=== PATIENT | female | born 1960 | race African-American/Black ===

== ENCOUNTER 2017-12-02 14:22 | Emergency (ER) | payer OTHER ==
[2017-12-02 14:31] VITALS: BP 118/75; PULSE 98; TEMP 98.5; BMI 32.2
--- NOTE | 2017-12-02 15:14 | PDOC ---
History of Present Illness - General Chief Complaint: Sore Throat Stated Complaint: SORE THROAT Time Seen by Provider: 12/02/17 15:05 History Source: Patient - History of Present Illness Initial Comments: 57-year-old female presents for evaluation of sore throat 3 days with no other associated symptoms. She denies fever chills or night sweats. 12/02/17 15:12 Past History - Past Medical History Allergies/Adverse Reactions: Allergies Allergy/AdvReac Type Severity Reaction Status Date / Time banana Allergy Mild Hives Verified 12/02/17 14:28 tomato Allergy Mild Itching Verified 12/02/17 14:28 Penicillins Allergy Rash Verified 12/02/17 14:28 Home Medications: Ambulatory Orders Quetiapine Fumarate [Seroquel] 600 mg PO HS 07/03/15 Ergocalciferol (Vitamin D2) [Vitamin D] 50,000 unit PO MOFR 08/08/15 Cyclobenzaprine HCl [Flexeril -] 10 mg PO BID PRN 01/06/16 Zolpidem Tartrate [Ambien] 5 mg PO HS 04/26/16 Amlodipine Besylate [Norvasc -] 10 mg PO DAILY #30 tablet 09/13/17 Hydrocodone/Acetaminophen [Radiant 10-325 Tablet] 1 each PO BID PRN #55 tablet MDD 2 11/08/17 Nicotine Polacrilex [Nicotine Gum] 4 mg BC Q2H PRN #120 gum 11/08/17 Ibuprofen 400 mg PO DAILY PRN #30 tablet 11/30/17 Anemia: No Asthma: Yes (ON MDI) Cancer: No Cardiac Disorders: No CVA: No COPD: No CHF: No Diabetes: No GI Disorders: No Disorders: No HTN: Yes Hypercholesterolemia: No Kidney Stones: No Liver Disease: No Psychiatric Problems: Yes (DEPRESSION) Seizures: No Thyroid Disease: No - Surgical History Abdominal Surgery: Yes (TUBAL LIGATION 19 YRS. AGO) Appendectomy: No Cardiac Surgery: No Cholecystectomy: No Lung Surgery: No Neurologic Surgery: No Orthopedic Surgery: No - Family Disease History Family Disease History: Heart Disease: Father - Reproductive History PID: No - Suicide/Smoking/Psychosocial Hx Smoking Status: Yes Smoking History: Never smoked Have you smoked in the past 12 months: Yes Number of Cigarettes Smoked Daily: 6 Information on smoking cessation initiated: No 'Breaking Loose' booklet given: 09/08/15 Hx Alcohol Use: No Drug/Substance Use Hx: No Substance Use Type: Alcohol, Cocaine Hx Substance Use Treatment: Yes (detox, [facility], [facility], rehab ) Review of Systems - Review of Systems Constitutional: Yes: See HPI, Malaise. No: Chills, Fever HEENTM: Yes: Throat Pain All Other Systems: Reviewed and Negative *Physical Exam - Vital Signs Last Vital Signs Temp Pulse Resp BP Pulse Ox 98.5 F 98 H 18 118/75 100 12/02/17 14:28 12/02/17 14:28 12/02/17 14:28 12/02/17 14:28 12/02/17 14:28 - Physical Exam Comments: GENERAL: The patient is awake, alert, and fully oriented, in no acute distress. HEAD: Normal with no signs of trauma. EYES: Pupils equal, round and reactive to light, extraocular movements intact, sclera anicteric, conjunctiva clear. ENT: Ears normal, nares patent, oropharynx mildly injected without exudates. Moist mucous membranes. NECK: Normal range of motion, supple without lymphadenopathy, JVD, or masses. LUNGS: Breath sounds equal, clear to auscultation bilaterally. No wheezes, and no crackles. HEART: Regular rate and rhythm, normal S1 and S2 without murmur, rub or gallop. ABDOMEN: Soft, nontender, normoactive bowel sounds. No guarding, no rebound. No masses. EXTREMITIES: Normal range of motion, no edema. No clubbing or cyanosis. No cords, erythema, or tenderness. NEUROLOGICAL: Cranial nerves II through XII grossly intact. Normal speech, normal gait. PSYCH: Normal mood, normal affect. SKIN: Warm, Dry, normal turgor, no rashes or lesions noted. 12/02/17 15:13 Medical Decision Making - Medical Decision Making Rapid strep pending 12/02/17 15:13 12/02/17 15:39 Rapid strep negative this is most likely a viral pharyngitis I'll have her follow-up with her primary care physician the remainder of her throat exam was normal. *DC/Admit/Observation/Transfer Diagnosis at time of Disposition: Viral pharyngitis - Discharge Dispostion Disposition: HOME Condition at time of disposition: Stable Decision to Admit order: No - Referrals Referrals: Justin Lema MD [Staff Physician] - - Patient Instructions Printed Discharge Instructions: Viral Pharyngitis, DI for Viral Pharyngitis Additional Instructions: Your rapid strep was negative this is most likely a viral pharyngitis. Warm salt water gargles 3-5 times a day will help your throat pain as well as Tylenol and Motrin. Return to the emergency room if your symptoms worsen or go unresolved. He should follow up with the primary care physician I recommended for you in the next day or 2. - Post Discharge Activity
== END 2017-12-02 15:43 | disposition home or self-care (01) ==
LOC: JERFT 14:22
DX: J02.9 Acute pharyngitis, unspecified (principal); B97.89 Other viral agents as the cause of diseases classified elsewhere
CPT/HCPCS: 87070; 87430; 99281-25

== ENCOUNTER 2018-05-11 11:37 | Emergency (ER) | payer OTHER ==
[2018-05-11 11:43] VITALS: BMI 32.1
--- NOTE | 2018-05-11 12:52 | PDOC ---
History of Present Illness - General Chief Complaint: Palpitations Stated Complaint: PALPITATIONS Time Seen by Provider: 05/11/18 12:29 History Source: Patient Exam Limitations: No Limitations - History of Present Illness Initial Comments: 05/11/18 12:49 The patient is a 57F with a PMH of HTN, depression, and bipolar II who presents to the ER with complaints of palpitations. The patient states that she's had 1 week of palpitations which have been occurring more frequently. Today, she felt a palpitation with sharp pain which lasted for 1 second. The pain is located in her L parasternum, nonradiating, not associated with nausea, vomiting, diaphoresis, or lightheadedness. She denies any pain at the moment. She denies SOB. She has had this 3 years ago but states that she was using drugs at the time. She denies any current drug use, any stimulant use, and any history of thyroid problems. Past History - Past Medical History Allergies/Adverse Reactions: Allergies Allergy/AdvReac Type Severity Reaction Status Date / Time banana Allergy Mild Hives Verified 05/11/18 11:42 tomato Allergy Mild Itching Verified 05/11/18 11:42 Penicillins Allergy Rash Verified 05/11/18 11:42 Home Medications: Ambulatory Orders Quetiapine Fumarate [Seroquel] 600 mg PO HS 07/03/15 Cyclobenzaprine HCl [Flexeril -] 10 mg PO BID PRN 01/06/16 Zolpidem Tartrate [Ambien] 5 mg PO HS 04/26/16 Amlodipine Besylate [Norvasc -] 10 mg PO DAILY #30 tablet 09/13/17 Nicotine Polacrilex [Nicotine Gum] 4 mg BC Q2H PRN #120 gum 11/08/17 Acetaminophen 325 mg PO BID PRN #60 tablet 02/03/18 Acyclovir [Zovirax -] 800 mg PO BID #20 tablet 02/03/18 Ergocalciferol [Vitamin D2] 50,000 unit PO Q7D@1000 #4 capsule 04/03/18 Multivitamin [Multiple Vitamins] 1 each PO DAILY #30 tablet 04/03/18 Ibuprofen 400 mg PO DAILY PRN #30 tablet 05/01/18 Hydrocodone/Acetaminophen [Weldon 10-325 Tablet] 10 each PO BID PRN MDD 2 Anemia: No Asthma: Yes (ON MDI) Cancer: No Cardiac Disorders: No CVA: No COPD: No CHF: No Diabetes: No GI Disorders: No Disorders: No HTN: Yes Hypercholesterolemia: No Kidney Stones: No Liver Disease: No Psychiatric Problems: Yes (depression) Seizures: No Thyroid Disease: No - Surgical History Abdominal Surgery: Yes (TUBAL LIGATION 19 YRS. AGO) Appendectomy: No Cardiac Surgery: No Cholecystectomy: No Lung Surgery: No Neurologic Surgery: No Orthopedic Surgery: No - Family Disease History Family Disease History: Heart Disease: Father - Reproductive History PID: No - Suicide/Smoking/Psychosocial Hx Smoking Status: Yes Smoking History: Current every day smoker Have you smoked in the past 12 months: Yes Number of Cigarettes Smoked Daily: 5 Information on smoking cessation initiated: Yes 'Breaking Loose' booklet given: 05/11/18 Hx Alcohol Use: No Drug/Substance Use Hx: No Substance Use Type: Alcohol, Cocaine Hx Substance Use Treatment: Yes (detox, [facility], [facility], rehab ) Review of Systems - Review of Systems Able to Perform ROS?: Yes Comments:: 05/11/18 12:52 GENERAL/CONSTITUTIONAL: No fever or chills. No weakness. HEAD, EYES, EARS, NOSE AND THROAT: No change in vision. No ear pain or discharge. No sore throat. CARDIOVASCULAR: Positive for palpitations and resolved chest pain. RESPIRATORY: No cough, wheezing, shortness of breath, or hemoptysis. GASTROINTESTINAL: No nausea, vomiting, diarrhea, constipation, or abdominal pain. GENITOURINARY: No dysuria, frequency, hematuria, or change in urination. MUSCULOSKELETAL: No joint or muscle swelling or pain. No neck or back pain. SKIN: No rash or lesions. NEUROLOGIC: No headache, numbness, tingling, focal weakness, loss of consciousness, or change in strength/sensation. Is the patient limited Telugu proficient: No *Physical Exam - Vital Signs Last Vital Signs Temp Pulse Resp BP Pulse Ox 98.9 F 92 H 19 115/72 98 05/11/18 11:39 05/11/18 12:37 05/11/18 11:39 05/11/18 11:39 05/11/18 12:37 - Physical Exam Comments: 05/11/18 12:52 GENERAL: Well developed, well nourished. Awake and alert. No acute distress. HEENT: Normocephalic, atraumatic. Hearing grossly normal. Moist mucous membranes. PERRLA, EOMI. No conjunctival pallor. Sclera are non-icteric. NECK: Supple. Full ROM. CARDIOVASCULAR: Regular rate and rhythm. No murmurs, rubs, or gallops. PULMONARY: No evidence of respiratory distress. Lungs clear to auscultation bilaterally. No wheezing, rales or rhonchi. ABDOMINAL: Soft. Non-tender. Non-distended. No rebound or guarding. GENITOURINARY: No CVA tenderness bilaterally. MUSCULOSKELETAL: Normal range of motion at all joints. No bony deformities or tenderness. EXTREMITIES: No cyanosis. No clubbing. No edema. No calf tenderness or swelling. SKIN: Warm and dry. Normal capillary refill. No rashes. No jaundice. NEUROLOGICAL: Alert, awake, appropriate. Cranial nerves 2-12 grossly intact. Normal speech. Gait is normal without ataxia. PSYCHIATRIC: Cooperative. Good eye contact. Appropriate mood and affect. ED Treatment Course - LABORATORY CBC & Chemistry Diagram: 05/11/18 12:50 05/11/18 12:50 - RADIOLOGY Radiology Studies Ordered: Category Date Time Status CHEST PA & LAT [RAD] Stat Radiology 05/11/18 12:38 Ordered Medical Decision Making - Medical Decision Making 05/11/18 12:53 The patient is a 57F with a PMH of HTN who presents to the ER with complaints of palpitations. On the Ddx is electrolyte abnormality, ACS, PE, and thyroid disorder. PE is much less likely as the patient has no risk factors including no immobilization, no hempotysis, no hx of cancer, and no hx of DVT's. Pending labs, EKG, CXR, and trop. 05/11/18 14:25 CBC, CMP, troponin, TSH, CXR negative for acute pathology. Will give holter monitor and d/w cards. Cards paged pending call back. 05/11/18 14:36 Case d/w Dr. Wheeler who agrees to see the patient next week with holter monitor. Will d/c with PCP and cards f/u. *DC/Admit/Observation/Transfer Diagnosis at time of Disposition: Palpitations - Discharge Dispostion Disposition: HOME Condition at time of disposition: Stable Decision to Admit order: No - Referrals Referrals: Chris Goodwin MD [Primary Care Provider] - Kristi Wheeler MD [Staff Physician] - - Patient Instructions Printed Discharge Instructions: DI for Palpitations Additional Instructions: Please follow up with your primary care physician and in 2-3 days. Please follow up with Dr. Wheeler, cardiology, next week. Please return to the ER if you have any signs or symptoms of chest pain, shortness of breath, uncontrollable fever, chills, nausea, vomiting, numbness, tingling, or weakness in any part of your body, changes in vision, or slurred speech. Please take your medications as prescribed. Please return to the ER if symptoms persist, worsen, or new symptoms arise. - Post Discharge Activity
[2018-05-11 13:02] LABS: BASO % 2.3 % (0-2.0); EOS % 1.4 % (0-4.5); HEMATOCRIT 37.1 % (32.4-45.2); HEMOGLOBIN 12.6 GM/dL (10.7-15.3); LYMPH % 48.5 % (8-40); MCH 29.3 pg (25.7-33.7); MEAN CELL VOLUME 86.2 fl (80-96); MEAN PLT VOLUME 7.9 fl (7.5-11.1); MONO % 5.8 % (3.8-10.2); PLATELET COUNT 321 K/MM3 (134-434); RDW 14.1 % (11.6-15.6); WHITE BLOOD COUNT 6.6 K/mm3 (4.0-10.0)
[2018-05-11] MEDS ORDERED: SODIUM CHLORIDE 1,000 ML IV STA (13:15)
--- NOTE | 2018-05-11 13:20 | PDOC ---
Attending Attestation - Resident Resident Name: Luis AlfredotrentMelo - ED Attending Attestation I have performed the following: I have examined & evaluated the patient, The case was reviewed & discussed with the resident, I agree w/resident's findings & plan, Exceptions are as noted - HPI HPI: 05/11/18 13:19 57 year old female with past medical history of asthma and depression presents with intermittent several seconds of palpitations last week. The patient reports that occur several times a day she felt like jumping sensation in her heart. Denies chest pain or shortness of breath. Patient reported that the symptoms were occurring nearly a daily basis came to the ER. Patient does have a strong family history of myocardial infarctions with her brother dying from heart attack at age of 48. Patient reports that she smokes a few cigarettes per day. The patient has been endorsing no symptoms currently. Patient has never had a prior cardiac workup before. Came to the ER for evaluation. - Physicial Exam PE: 05/11/18 14:25 GENERAL: Awake, alert, and fully oriented, in no acute distress HEAD: No signs of trauma EYES: EOMI, sclera anicteric, conjunctiva clear ENT: Auricles normal inspection, hearing grossly normal, nares patent,Moist mucosa NECK: Normal ROM, supple, LUNGS: Breath sounds equal, clear to auscultation bilaterally. No wheezes, and no crackles HEART: Regular rate and rhythm, normal S1 and S2, no murmurs, rubs or gallops ABDOMEN: Soft, nontender, No guarding, no rebound. No masses EXTREMITIES: Normal range of motion, no edema. No clubbing or cyanosis. No cords, erythema, or tenderness NEUROLOGICAL: Cranial nerves II through XII grossly intact. Normal speech, normal gait SKIN: Warm, Dry, normal turgor, no rashes or lesions noted. - Medical Decision Making 05/11/18 14:28 Vital Signs Temp Pulse Resp BP Pulse Ox 98.9 F 92 H 19 115/72 98 05/11/18 11:39 05/11/18 12:37 05/11/18 11:39 05/11/18 11:39 05/11/18 12:37 The patient has intermittent few seconds of palpitations sensation in her chest. Patient does have cardiac history of smoking history. EKG demonstrates Q wave in V2 but no other acute findings. Laboratory demonstrates no other acute findings. At this time, I do not suspect this is an ND. However, patient would benefit from a Holter monitor. We'll order a Holter monitor and have the patient follow cartilage. We'll consult blending tank helper for outpatient arrangement in consultation. If the blending tank helper is agreeable, will discharge patient. Heart Score/ECG Review #1 ECG reviewed & interpreted by me at: 13:40 05/11/18 14:29 NSR 88 MS intervals 200 msec, QTC 425 msec,no std/patricio., Q wave V1-V2, no brugada , no HOCM, no WPW
[2018-05-11 13:36] LABS: ALBUMIN 3.8 g/dl (3.4-5.0); ALK PHOS 101 U/L (45-117); ANION GAP 6 MMOL/L (8-16); BILIRUBIN,TOTAL 0.2 mg/dL (0.2-1); BLOOD UREA NITROGEN 13 mg/dL (7-18); CALCIUM 9.1 mg/dL (8.5-10.1); CHLORIDE 105 mmol/L (98-107); CO2 29 mmol/L (21-32); CREATININE 0.7 mg/dL (0.55-1.3); GLUCOSE,RANDOM 78 mg/dL (74-106); MAGNESIUM 2.3 mg/dL (1.8-2.4); POTASSIUM 3.6 mmol/L (3.5-5.1); SGOT/AST 13 U/L (15-37); SGPT/ALT 21 U/L (13-61); SODIUM 140 mmol/L (136-145); TOT PROT 7.7 g/dl (6.4-8.2)
[2018-05-11 15:20] VITALS: BP 124/81; PULSE 82; TEMP 98.2
--- NOTE | 2018-05-12 07:44 | EKG ---
Test Reason : Blood Pressure : / mmHG Vent. Rate : 088 BPM Atrial Rate : 088 BPM P-R Int : 200 ms QRS Dur : 066 ms QT Int : 352 ms P-R-T Axes : 052 -13 032 degrees QTc Int : 425 ms NORMAL SINUS RHYTHM POSSIBLE LEFT ATRIAL ENLARGEMENT SEPTAL INFARCT (CITED ON OR BEFORE 03-JUL-2015) ABNORMAL ECG WHEN COMPARED WITH ECG OF 03-JUL-2015 13:19, NO SIGNIFICANT CHANGE WAS FOUND Confirmed by JAIME MORILLO MD ([id number]) on 05/12/2018 7:44:16 AM Referred By: Confirmed By:JAIME MORILLO MD
--- NOTE | 2018-05-12 15:45 | HOL ---
Hook-up date: 2018-05-11 15:25:00 Duration: 23:17:00 Test Indications: PALPITATIONS Medications: [id number] QRS complexes 108 Ventricular ectopics which represent <1 % of total QRS comp. 18 Supraventricular ectopics which represent <1 % of total QRS comp. * Paced QRS complexs which represent % of total QRS comp. 2 % of Time Classified as Noise VENTRICULAR ECTOPY 108 Isolated 0 Bigeminal Cycles 0 Couplets 0 Runs 0 Beats in Runs * Beats LONGEST at * BPM at :: -- * Beats FASTEST at * BPM at :: -- SUPRAVENTRICULAR ECTOPY 15 Isolated 0 Couplets 0 Runs 0 Beats in Runs * Beats LONGEST at * BPM at :: -- * Beats FASTEST at * BPM at :: -- HEART RATES 68 MIN at 21:58:27 2018-05-11 92 AVG 133 MAX at 14:01:16 2018-05-12 LONGEST RR 1.296 secs at 07:07:05 2018-05-12 The baseline rhythm is normal sinus. The minimum rate is 68bpm and the maximum is 133bpm, sinus tachycardia. Rare, single ventricular premature contractions. Rare, single atrial premature contractions. No sustained ventricular ectopy. No significant pauses. No diary entries. Confirmed by JAIME MORILLO MD ([id number]) on 05/12/2018 3:45:30 PM Referred By: ARTEM BLAND DR Overread By: JAIME MORILLO MD
--- NOTE | 2018-05-15 10:50 | EKG ---
Test Reason : Blood Pressure : / mmHG Vent. Rate : 092 BPM Atrial Rate : 092 BPM P-R Int : 186 ms QRS Dur : 072 ms QT Int : 346 ms P-R-T Axes : 045 -06 048 degrees QTc Int : 427 ms NORMAL SINUS RHYTHM POSSIBLE LEFT ATRIAL ENLARGEMENT LOW VOLTAGE QRS SEPTAL INFARCT (CITED ON OR BEFORE 03-JUL-2015) ABNORMAL ECG WHEN COMPARED WITH ECG OF 03-JUL-2015 13:19, NO SIGNIFICANT CHANGE WAS FOUND Confirmed by PENNY BETANCOURT MD ([id number]) on 05/15/2018 10:49:59 AM Referred By: Confirmed By:PENNY BETANCOURT MD
== END 2018-05-11 15:20 | disposition home or self-care (01) ==
LOC: JER 11:37
PROC: 3E0337Z Introduction of Electrolytic and Water Balance Substance into Peripheral Vein, Percutaneous Approach (ICD-10-PCS; principal; 2018-05-11)
DX: R00.2 Palpitations (principal); R07.9 Chest pain, unspecified; I10 Essential (primary) hypertension; F31.81 Bipolar II disorder; F32.9 Major depressive disorder, single episode, unspecified; F17.210 Nicotine dependence, cigarettes, uncomplicated; Z88.1 Allergy status to other antibiotic agents
CPT/HCPCS: 36415; 71046-TC-FY; 80053; 82550; 82553; 83735; 84443; 84484; 85025; 93005; 93010; 93225; 93226; 99285-25; J7030

== ENCOUNTER 2018-06-08 11:42 | Emergency (ER) | payer OTHER ==
[2018-06-08 11:58] VITALS: TEMP 98.1; BMI 32.1
--- NOTE | 2018-06-08 12:46 | PDOC ---
History of Present Illness - General Chief Complaint: Palpitations Stated Complaint: PALPITATIONS Time Seen by Provider: 06/08/18 12:27 - History of Present Illness Initial Comments: 06/08/18 12:39 57 yo with h/o HTN,. anxiety and asthma, bi[polar disorder, who p/w palpitations. Patient reports 1 month of intermittent, stable, palpitations, with no identifiable alleviators. States that heart speeds up and slows down. aggravated with social stressors. No other complaints. Patient recently started on Metoprolol 25 mg x 2 weeks. Non adherent to medication ( Metoprolol) d/t worsening palpations with Metoprolol. Patient on Seroquel, but currently not taking. Patient follows with psych. Patient denies N/V, F,C, Cough m wheezing, hemoptysis, CP, SOB, urinary complaints, abdominal pain, diarrhea, constipation,hematuria, BPR, lightheadedness, weakness, sensory changes. PMHx: as noted above. Denies h/o ACS/IL, stent placement, CABG. Reports recent stress test, and Holter monitor with tachycardia. Denies h/o PE/DVT. ROS: as noted SHx: Tobacco use 1/2 ppd 20+ years. alcohol and cocaine cessation x 3 years ago. Allergies: PCN Cardiology: Dr. Mcnulty Past History - Past Medical History Allergies/Adverse Reactions: Allergies Allergy/AdvReac Type Severity Reaction Status Date / Time banana Allergy Mild Hives Verified 06/08/18 11:55 tomato Allergy Mild Itching Verified 06/08/18 11:55 Penicillins Allergy Rash Verified 06/08/18 11:55 Home Medications: Ambulatory Orders Quetiapine Fumarate [Seroquel] 600 mg PO HS 07/03/15 Zolpidem Tartrate [Ambien] 5 mg PO HS 04/26/16 Amlodipine Besylate [Norvasc -] 10 mg PO DAILY #30 tablet 09/13/17 Acetaminophen 325 mg PO BID PRN #60 tablet 02/03/18 Ergocalciferol [Vitamin D2] 50,000 unit PO Q7D@1000 #4 capsule 04/03/18 Multivitamin [Multiple Vitamins] 1 each PO DAILY #30 tablet 04/03/18 Ibuprofen 400 mg PO DAILY PRN #30 tablet 05/01/18 Carvedilol 3.125 mg PO BID #28 tablet MDD 2 tab 06/08/18 Metoprolol Succinate [Toprol Xl] 25 mg PO DAILY 06/08/18 Anemia: No Asthma: Yes (ON MDI) Cancer: No Cardiac Disorders: No CVA: No COPD: No CHF: No Diabetes: No GI Disorders: No Disorders: No HTN: Yes Hypercholesterolemia: No Kidney Stones: No Liver Disease: No Psychiatric Problems: Yes (depression) Seizures: No Thyroid Disease: No - Surgical History Abdominal Surgery: Yes (TUBAL LIGATION 19 YRS. AGO) Appendectomy: No Cardiac Surgery: No Cholecystectomy: No Lung Surgery: No Neurologic Surgery: No Orthopedic Surgery: No - Family Disease History Family Disease History: Heart Disease: Father - Reproductive History PID: No - Suicide/Smoking/Psychosocial Hx Smoking Status: Yes Smoking History: Current every day smoker Have you smoked in the past 12 months: Yes Number of Cigarettes Smoked Daily: 5 Information on smoking cessation initiated: No 'Breaking Loose' booklet given: 05/11/18 Hx Alcohol Use: Yes (none x 3 years) Drug/Substance Use Hx: Yes (none x 3 years) Substance Use Type: Alcohol, Cocaine Hx Substance Use Treatment: Yes (detox, [facility], [facility], rehab ) Cardiac Specific PMH - Complaint Specific PMHX Pacemaker: No Review of Systems - Review of Systems Comments:: 06/08/18 12:49 GENERAL/CONSTITUTIONAL: No fever or chills. No weakness. HEAD, EYES, EARS, NOSE AND THROAT: No change in vision. No ear pain or discharge. No sore throat. CARDIOVASCULAR: No chest pain or shortness of breath RESPIRATORY: + palpitations. No cough, wheezing, or hemoptysis. GASTROINTESTINAL: No nausea, vomiting, diarrhea or constipation. GENITOURINARY: No dysuria, frequency, or change in urination. MUSCULOSKELETAL: No joint or muscle swelling or pain. No neck or back pain. SKIN: No rash NEUROLOGIC: No headache, vertigo, loss of consciousness, or change in strength/ sensation. ENDOCRINE: No increased thirst. No abnormal weight change HEMATOLOGIC/LYMPHATIC: No anemia, easy bleeding, or history of blood clots. ALLERGIC/IMMUNOLOGIC: No hives or skin allergy. *Physical Exam - Vital Signs Last Vital Signs Temp Pulse Resp BP Pulse Ox 98.1 F 95 H 18 135/77 99 06/08/18 11:48 06/08/18 11:48 12/06/18 11:48 06/08/18 11:48 06/08/18 11:48 - Physical Exam Comments: 06/08/18 12:54 GENERAL: Awake, alert, and fully oriented, in no acute distress HEAD: No signs of trauma, normocephalic, atraumatic EYES: PERRLA, EOMI, sclera anicteric, conjunctiva clear ENT: Auricles normal inspection, hearing grossly normal, nares patent, oropharynx clear without exudates. Moist mucosa NECK: Normal ROM, supple, no lymphadenopathy, JVD, or masses LUNGS: No distress, speaks full sentences, clear to auscultation bilaterally HEART: Regular rate and rhythm, normal S1 and S2, no murmurs, rubs or gallops, peripheral pulses normal and equal bilaterally. ABDOMEN: Soft, nontender, normoactive bowel sounds. No guarding, no rebound. No masses EXTREMITIES : Normal inspection, Normal range of motion, no edema. No clubbing or cyanosis. NEUROLOGICAL: Cranial nerves II through XII grossly intact. Normal speech, normal gait, no focal sensorimotor deficits SKIN: Warm, Dry, normal turgor, no rashes or lesions noted Moderate Sedation - Procedure Monitoring Vital Signs: Procedure Monitoring Vital Signs Temperature 98.1 F 06/08/18 11:48 Pulse Rate 95 H 06/08/18 11:48 Respiratory Rate 18 06/08/18 11:48 Blood Pressure 135/77 06/08/18 11:48 O2 Sat by Pulse Oximetry (%) 99 06/08/18 11:48 ED Treatment Course - LABORATORY CBC & Chemistry Diagram: 06/08/18 12:45 06/08/18 12:45 - ADDITIONAL ORDERS Additional order review: Laboratory Results 06/08/18 06/08/18 12:45 12:45 Sodium 144 Potassium 3.7 Chloride 108 H Carbon Dioxide 28 Anion Gap 7 L BUN 12 Creatinine 0.8 Creat Clearance w eGFR > 60 Random Glucose 99 Calcium 8.9 Total Bilirubin 0.2 AST 13 L ALT 21 Alkaline Phosphatase 107 Creatine Kinase 140 Troponin I < 0.02 Total Protein 7.8 Albumin 4.0 TSH 0.79 06/08/18 12:45 RBC 4.43 MCV 87.2 MCHC 32.4 RDW 14.3 MPV 7.6 Neutrophils % 43.9 Lymphocytes % 47.8 H Monocytes % 4.7 Eosinophils % 1.9 Basophils % 1.7 - RADIOLOGY Radiology Studies Ordered: Category Date Time Status CXRPORT [CHEST X-RAY PORTABLE*] [RAD] Stat Radiology 06/08/18 12:30 Completed Medical Decision Making - Medical Decision Making 06/08/18 12:46 57 yo with h/o HTN, anxiety and asthma who p/w palpitations. ACS/IL r/o. HR~95, vitals otherwise wnl. R/o PNA. Low suspicion PE, low risk Weils criteria. Will assess for cardiac dysarrythmias, thyroid dysfunction, electrolyte abnml, acid- base disturbances, metabolic and toxic derangements. 06/08/18 12:48 Ed Course: CBC, CMP, Cardiac Pr. TSH EKG, CXR 06/08/18 14:[address] Mcnulty answering service. Awaiting call back 06/08/18 14:12 CBC,CMP: Unremarkable TSH: Neg Trop: Neg 06/08/18 14:[address] Mcnulty. Patient can follow up with her in clinic for possible medication change carvedilol 31.25 BID Carvedilol sent to pharmacy Patient stable for d/c with return precautions. *DC/Admit/Observation/Transfer Diagnosis at time of Disposition: Palpitations - Discharge Dispostion Disposition: HOME Condition at time of disposition: Stable Decision to Admit order: No - Referrals - Patient Instructions Printed Discharge Instructions: DI for Palpitations Additional Instructions: Please return to the emergency department with any new or worsening symptoms or concerns. Please follow up with your primary care physician within 72 hours. Please follow up with Dr. Wheeler within 24 hours. - Post Discharge Activity - Attestations Physician Attestion: 06/08/18 14:46 I attest to the information provided in this note.
--- NOTE | 2018-06-08 12:54 | PDOC ---
Attending Attestation - HPI HPI: 06/08/18 15:10 The patient is a 57 year old female with a significant PMHx of hypertension, anxiety, asthma, bipolar disorder, who presents to the emergency department with complaints of intermittent palpitations for about one month. She reports her hearts races for a moment and resolves on its own. She deneis any alleviating or exacerbating factors of symptoms. He states he recently started Metoprolol 25 mg x 2 weeks ago, however, has not been taking the medication as directed. Patient denies N/V, F,C, Cough m wheezing, hemoptysis, CP, SOB, urinary complaints, abdominal pain, diarrhea, constipation,hematuria, BPR, lightheadedness, weakness, sensory changes. Allergies: penicillins Cardiology: Dr. Mcnulty - Medical Decision Making 06/08/18 15:12 Documentation prepared by Linda Nunez, acting as medical pathologist for Rhoda Garcia MD <Linda Nunez - Last Filed: 06/08/18 15:10> - Resident Resident Name: Lukasz Woodward - ED Attending Attestation I have performed the following: I have examined & evaluated the patient, The case was reviewed & discussed with the resident, I agree w/resident's findings & plan, Exceptions are as noted - Physicial Exam PE: GENERAL: Awake, alert, and fully oriented, in no acute distress HEAD: No signs of trauma EYES: PERRLA, EOMI, sclera anicteric, conjunctiva clear ENT: Auricles normal inspection, hearing grossly normal, nares patent, oropharynx clear without exudates. Moist mucosa NECK: Normal ROM, supple, no lymphadenopathy, JVD, or masses LUNGS: Breath sounds equal, clear to auscultation bilaterally. No wheezes, and no crackles HEART: Regular rate and rhythm, normal S1 and S2, no murmurs, rubs or gallops ABDOMEN: Soft, nontender, normoactive bowel sounds. No guarding, no rebound. No masses EXTREMITIES: Normal range of motion, no edema. No clubbing or cyanosis. No cords, erythema, or tenderness NEUROLOGICAL: Cranial nerves II through XII grossly intact. Normal speech, normal gait SKIN: Warm, Dry, normal turgor, no rashes or lesions noted. - Medical Decision Making Multiple attempts to reach patient's psychiatrist through the office, however, unsuccessful. Also contacted Dr. Wheeler to discuss. Patient's symptoms are long- term, not acute. She has had an extensive cardiac workup as an outpatient, disliked the metoprolol. Will change to carvedilol and education counselor her to f/u with Dr. Wheeler. Patient requesting medication for anxiety, however, as these medications can have significant side effects or addictive potential, will not do that without consulting with her psychiatrist. She has an appt next week. <Rhoda Garcia - Last Filed: 06/08/18 15:42>
[2018-06-08 13:01] LABS: BASO % 1.7 % (0-2.0); EOS % 1.9 % (0-4.5); HEMATOCRIT 38.6 % (32.4-45.2); HEMOGLOBIN 12.5 GM/dL (10.7-15.3); LYMPH % 47.8 % (8-40); MCH 28.2 pg (25.7-33.7); MCHC 32.4 g/dl (32.0-36.0); MEAN CELL VOLUME 87.2 fl (80-96); MEAN PLT VOLUME 7.6 fl (7.5-11.1); MONO % 4.7 % (3.8-10.2); NEUT % 43.9 % (42.8-82.8); PLATELET COUNT 327 K/MM3 (134-434); RBC 4.43 M/mm3 (3.60-5.2); RDW 14.3 % (11.6-15.6); WHITE BLOOD COUNT 6.2 K/mm3 (4.0-10.0)
[2018-06-08 13:32] LABS: ALK PHOS 107 U/L (45-117); ANION GAP 7 MMOL/L (8-16); BILIRUBIN,TOTAL 0.2 mg/dL (0.2-1); BLOOD UREA NITROGEN 12 mg/dL (7-18); CALCIUM 8.9 mg/dL (8.5-10.1); CHLORIDE 108 mmol/L (98-107); CO2 28 mmol/L (21-32); CREATININE 0.8 mg/dL (0.55-1.3); GLUCOSE,RANDOM 99 mg/dL (74-106); POTASSIUM 3.7 mmol/L (3.5-5.1); SGOT/AST 13 U/L (15-37); SGPT/ALT 21 U/L (13-61); SODIUM 144 mmol/L (136-145); TOT PROT 7.8 g/dl (6.4-8.2)
[2018-06-08] MEDS ORDERED: CARVEDILOL 3.125 MG TABLET (FP) PO ONE (14:44)
[2018-06-08] MEDS ORDERED: CARVEDILOL 3.125 MG TABLET (FP) ONE (15:07)
[2018-06-08 15:24] VITALS: BP 121/92; PULSE 86
--- NOTE | 2018-06-09 19:05 | EKG ---
Test Reason : Blood Pressure : / mmHG Vent. Rate : 084 BPM Atrial Rate : 084 BPM P-R Int : 188 ms QRS Dur : 074 ms QT Int : 348 ms P-R-T Axes : 055 000 059 degrees QTc Int : 411 ms NORMAL SINUS RHYTHM POSSIBLE LEFT ATRIAL ENLARGEMENT SEPTAL INFARCT (CITED ON OR BEFORE 03-JUL-2015) ABNORMAL ECG WHEN COMPARED WITH ECG OF 11-MAY-2018 13:40, NO SIGNIFICANT CHANGE WAS FOUND Confirmed by AVE WALLACE MD ([id number]) on 06/09/2018 7:04:53 PM Referred By: Confirmed By:AVE WALLACE MD
== END 2018-06-08 15:15 | disposition home or self-care (01) ==
LOC: JER 11:42
DX: R00.2 Palpitations (principal); I10 Essential (primary) hypertension; F41.9 Anxiety disorder, unspecified; J45.909 Unspecified asthma, uncomplicated
CPT/HCPCS: 36415; 71045-TC-FY; 80053; 82550; 84443; 84484; 85025; 93005; 93010; 99281-25

== ENCOUNTER 2019-07-11 09:49 | Emergency (ER) | payer OTHER ==
[2019-07-11 10:10] VITALS: BP 131/80; PULSE 91; TEMP 97.5; BMI 32.7
--- NOTE | 2019-07-11 10:40 | PDOC ---
History of Present Illness - General Chief Complaint: Pain, Acute Stated Complaint: HURT RT ARM Time Seen by Provider: 07/11/19 10:13 - History of Present Illness Initial Comments: 07/11/19 10:35 Patient is a 59-year-old female with a history of hypertension, asthma and depression who presents to the ED with complaint of right upper extremity pain that she has had since the end of May. She states it started after cutting 10 bunches of juan [place]ablo greens. She states she is having pain in her elbow that radiates up and down her arm. She denies any numbness or tingling. She is right-hand dominant. Past History - Past Medical History Allergies/Adverse Reactions: Allergies Allergy/AdvReac Type Severity Reaction Status Date / Time banana Allergy Mild Hives Verified 06/08/18 11:55 tomato Allergy Mild Itching Verified 06/08/18 11:55 Penicillins Allergy Rash Verified 06/08/18 11:55 Home Medications: Ambulatory Orders Quetiapine Fumarate [Seroquel] 600 mg PO HS 07/03/15 Zolpidem Tartrate [Ambien] 5 mg PO HS 04/26/16 Carvedilol 3.125 mg PO BID #28 tablet MDD 2 tab 06/08/18 Acetaminophen 325 mg PO BID PRN #60 tablet 12/26/18 Docusate Sodium [Colace -] 100 mg PO TID #90 capsule 01/25/19 Ergocalciferol [Vitamin D2] 50,000 unit PO Q7D@1000 #4 capsule 03/30/19 Multivitamin [Multiple Vitamins] 1 each PO DAILY #30 tablet 03/30/19 Polyethylene Glycol 3350 [Miralax (For Bowel Prep) -] 17 gm PO DAILY #1 btl Nicotine [Nicotine Patch 21 mg/24 hr] 1 each TD DAILY #30 patch.[id number] 05/25/19 Amlodipine Besylate [Norvasc -] 10 mg PO DAILY #21 tablet 06/26/19 Hydrocodone/Acetaminophen [[place] 10-325 Tablet] 1 each PO BID PRN #60 tablet MDD 2 06/26/19 Ibuprofen 600 mg PO DAILY PRN #30 tablet 06/26/19 Methocarbamol [Robaxin-750] 750 mg PO BID PRN #60 tablet 06/26/19 Meloxicam [Mobic] 7.5 mg PO BID 7 Days #14 tablet 07/11/19 Anemia: No Asthma: Yes (ON MDI) Cancer: No Cardiac Disorders: Yes (palpitations sometimes) CVA: No COPD: No CHF: No Diabetes: No GI Disorders: No Disorders: No HTN: Yes Hypercholesterolemia: No Kidney Stones: No Liver Disease: No Psychiatric Problems: Yes (depression) Seizures: No Thyroid Disease: No - Surgical History Abdominal Surgery: Yes (TUBAL LIGATION 19 YRS. AGO) Appendectomy: No Cardiac Surgery: No Cholecystectomy: No Lung Surgery: No Neurologic Surgery: No Orthopedic Surgery: No - Reproductive History PID: No - Immunization History Immunization Up to Date: Yes - Psycho Social/Smoking Cessation Hx Smoking Status: Yes Smoking History: Never smoked Have you smoked in the past 12 months: Yes Number of Cigarettes Smoked Daily: 5 Information on smoking cessation initiated: No 'Breaking Loose' booklet given: 05/11/18 Hx Alcohol Use: No Drug/Substance Use Hx: No Substance Use Type: Alcohol, Cocaine Hx Substance Use Treatment: Yes (detox, [facility], [facility], rehab ) Review of Systems - Review of Systems Comments:: 07/11/19 10:35 - Review of Systems Able to Perform ROS?: Yes Constitutional: No: Fever, Chills, Loss of Appetite, Night Sweats, Weakness HEENTM: No: Eye Pain, Vision changes, Ear Pain, Throat Pain, Throat Swelling, Mouth Pain, Difficulty Swallowing Respiratory: No: Cough, Shortness of Breath, Wheezing, Sputum Production Cardiac (ROS): No: Chest Pain, Chest Tightness, Palpitations, Irregular Heart Beat, Edema ABD/GI: No: Nausea, Vomiting, Abdominal Pain, Diarrhea : No Dysuria, No Hematuria, No Frequency, No Urgency, No Vaginal Discharge/ Pain Musculoskeletal: No:Back Pain, Muscle Weakness, Neck Pain; Positive right elbow pain and right shoulder pain Integumentary: No: Lesions, Rash Neurological: No: Headache, Numbness, Tingling, Weakness, Speech Difficulties *Physical Exam - Vital Signs Last Vital Signs Temp Pulse Resp BP Pulse Ox 97.5 F L 91 H 18 131/80 96 07/11/19 10:04 07/11/19 10:04 07/11/19 10:04 07/11/19 10:04 07/11/19 10:04 - Physical Exam 07/11/19 10:36 - Physical Exam General Appearance: Nourished, Appropriately Dressed, No Distress Neck: Supple, No Decreased range of motion Respiratory/Chest: Lungs Clear, Normal Breath Sounds. No Respiratory Distress, No Accessory Muscle Use Cardiovascular: Regular Rhythm, Regular Rate, S1, S2 Musculoskeletal: Normal Inspection. No Decreased Range of Motion; Tenderness to palpation over the right anterior shoulder along the biceps tendon consistent with bicipital tendinitis. There is reproducible pain with compression of the ulnar nerve of the right elbow consistent with cubital tunnel syndrome. Full range of motion of the right elbow and shoulder. No step -off appreciated. No tenderness over the carpal tunnel and no reproducible numbness or tingling. Negative Tinel's test. Extremity: Normal Capillary Refill, Normal Inspection Integumentary: Normal Color, Dry. No Rash Neurologic: transportation inspector II-XII NML intact, Fully Oriented, Alert, Normal Mood/Affect, Normal Response Medical Decision Making - Medical Decision Making 07/11/19 10:38, I have discussed with the patient that her symptoms are consistent with cubital tunnel syndrome and bicipital tendinitis on the right which are all due from overuse. I have encouraged her to purchase an elbow pad and wear it with the pad on the anterior aspect of the arm while sleeping to help with the cubital tunnel syndrome. She can take Mobic which has been sent to her pharmacy and she has been advised to stop taking any ibuprofen or other NSAIDs [id number]. She should follow-up with orthopedics for further evaluation and possibly a nerve conduction study. And possible corticosteroid injection to the shoulder. Discharge - Discharge Information Problems reviewed: Yes Clinical Impression/Diagnosis: Cubital tunnel syndrome on right, Biceps tendinitis of right shoulder Condition: Stable Disposition: HOME - Additional Discharge Information Prescriptions: Meloxicam [Mobic] 7.5 mg PO BID 7 Days #14 tablet - Follow up/Referral Referrals: Chris Goodwin MD [Primary Care Provider] - Deniz Duff DO [Staff Physician] - - Patient Discharge Instructions Patient Printed Discharge Instructions: DI for Cubital Tunnel Syndrome, DI for Shoulder Pain, Shoulder Tendinopathy Additional Instructions: Avoid any strenuous activity. Purchase an elbow pad and wear the pad along the front of your elbow to keep your arm straight only while sleeping. Take the Mobic as prescribed and do not take any other anti-inflammatories (such as ibuprofen, Motrin, Advil). Follow-up with orthopedics and referral has been given to you. You may require a nerve conduction study to evaluate further for cubital tunnel syndrome. You may also benefit from a corticosteroid injection in your right shoulder. - Post Discharge Activity
== END 2019-07-11 11:05 | disposition home or self-care (01) ==
LOC: JERFT 09:49
DX: G56.21 Lesion of ulnar nerve, right upper limb (principal); M77.9 Enthesopathy, unspecified; Z88.0 Allergy status to penicillin; Z91.018 Allergy to other foods; I10 Essential (primary) hypertension; J45.909 Unspecified asthma, uncomplicated; F32.9 Major depressive disorder, single episode, unspecified
CPT/HCPCS: 99281-25

== ENCOUNTER 2022-08-27 08:16 | Emergency (ER) | payer OTHER ==
[2022-08-27 08:23] VITALS: BP 127/64; PULSE 88; RESP 18; TEMP 98.2; BMI 35.9
[2022-08-27] MEDS ORDERED: DEXAMETHASONE SOD PHOSPHATE 10 MG/1 ML VIAL PO ONE (08:35)
[2022-08-27] MEDS ORDERED: DEXAMETHASONE SOD PHOSPHATE 10 MG/1 ML VIAL ONE (08:37)
== END 2022-08-27 08:43 | disposition home or self-care (01) ==
LOC: JERFT 08:16 → JER 08:16 → JERFT 08:43
DX: J02.9 Acute pharyngitis, unspecified (principal)
CPT/HCPCS: 87651; 99283-25; J1100